=== PATIENT | male | born 1965 | race Hispanic/Latino ===

== ENCOUNTER 2017-07-04 12:14 | Inpatient (IN) | payer OTHER ==
[2017-07-04 12:22] VITALS: BMI 27.7
--- NOTE | 2017-07-04 13:31 | ED PDOC ---
Arrival/HPI - General Chief Complaint: Abnormal Skin Integrity Time Seen by Provider: 07/04/17 12:26 Historian: Patient - History of Present Illness Narrative History of Present Illness (Text): 07/04/17 12:35 Lan Salas is a 52 year old male who presents to the emergency department with a worsened wound to the right hip s/p falling two weeks ago. Patient states that he had hip surgery in December and had issues with wound healing. Patient had an appointment with Dr. Byrne on 06/29/17 but missed the appointment due to an issue with transportation. Patient fell 2 weeks ago and believes he worsened the wound on his right hip. Patient presents today with continued purulent discharge from right hip wound and minimal pain to his right hip. Patient denies any fevers, chills, or any other complaints at this time. 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 hip surgery unsure why as per patient - Anesthesia Hx Anesthesia: Yes Family/Social History - Physician Review Nursing Documentation Reviewed: Yes Family/Social History: No Known Family HX Smoking Status: Heavy Smoker > 10 Cigarettes Daily Hx Alcohol Use: No Hx Substance Use: No Allergies/Home Meds Allergies/Adverse Reactions: Allergies divalproex sodium [From Depakote] Adverse Reaction (Verified 08/30/15 20:01) coma pt says he thinks he had reaction to depakote in combination with another drug Home Medications: Home Meds Medication Instructions Recorded Confirmed Aspirin [[place] Aspirin] 81 mg PO DAILY 07/13/15 07/04/17 Review of Systems - Physician Review All systems were reviewed & negative as marked: Yes - Review of Systems Constitutional: absent: Fevers, Night Sweats Eyes: absent: Vision Changes ENT: absent: Hearing Changes Respiratory: absent: SOB, Cough Cardiovascular: absent: Chest Pain Gastrointestinal: absent: Abdominal Pain Genitourinary Male: absent: Dysuria Musculoskeletal: Other (Right hip pain) Skin: Other (pirulent discharge from right right hip wound) Neurological: absent: Headache, Dizziness Endocrine: absent: Diaphoresis Hemo/Lymphatic: absent: Adenopathy Psychiatric: absent: Anxiety, Depression Physical Exam Vital Signs Reviewed: Yes Vital Signs Temp Pulse Resp BP Pulse Ox 07/04/17 12:23 97.5 F L 60 18 115/69 96 Temperature: Afebrile Blood Pressure: Normal Pulse: Regular Respiratory Rate: Normal Appearance: Positive for: Well-Appearing, Non-Toxic, Comfortable Pain Distress: None Mental Status: Positive for: Alert and Oriented X 3 - Systems Exam Head: Present: Atraumatic, Normocephalic Mouth: Present: Moist Mucous Membranes Respiratory/Chest: Present: Clear to Auscultation, Good Air Exchange. No: Respiratory Distress, Accessory Muscle Use Cardiovascular: Present: Regular Rate and Rhythm, Normal S1, S2. No: Murmurs Abdomen: No: Tenderness, Distention, Peritoneal Signs, Rebound, Guarding Upper Extremity: Present: Normal Inspection. No: Cyanosis, Edema Lower Extremity: Present: NORMAL PULSES, Normal ROM, Tenderness (minimal tenderness), Swelling (minimal bilateral lower leg swelling and edema present), Erythema, Neurovascularly Intact, Other (Right lateral aspect, proximal of femur : Quarter-sized wound with surrounding erythema and purulent discharge; nontender). No: CALF TENDERNESS, Deformity Neurological: Present: GCS=15, Speech Normal Skin: Present: Warm, Dry, Normal Color Psychiatric: Present: Alert, Oriented x 3 Medical Decision Making ED Course and Treatment: 07/04/17 19:01 52-year-old male presents with an infected wound to the right hip CBC within normal limits CMP within normal limits Blood cultures pending Wound cultures pending Patient had appointment with Dr. Byrne that he missed on 06/29/17. I consulted with student services vice president who saw patient at bedside Who discussed the case with Dr. Byrne. X-rays of the right hip no fracture Patient was started on vancomycin and Zosyn IV for infected wound. Case was discussed in depth with Dr. mendez accepts admission Impression: Infected wound of the right leg Admit to [facility] - Lab Interpretations Microbiology Results: Microbiology Results 07/04/17 13:55 Hip - Right Gram Stain - Final Lab Results: 07/04/17 13:55 07/04/17 13:55 Lab Results 07/04/17 13:55: WBC 9.1, RBC 4.02, Hgb 13.2 L, Hct 39.8 L, MCV 99.0, MCH 32.8, MCHC 33.2, RDW 14.3, Plt Count 310, MPV 9.4, Gran % 63.4, Lymph % (Auto) 25.2, [place] % (Auto) 6.7 H, Eos % (Auto) 4.4, Baso % (Auto) 0.3, Gran # 5.74, Lymph # ( Auto) 2.3, [place] # (Auto) 0.6, Eos # (Auto) 0.4, Baso # (Auto) 0.03 07/04/17 13:55: Sodium 143, Potassium 3.6, Chloride 105, Carbon Dioxide 27, Anion Gap 16, BUN 15, Creatinine 0.8, Est GFR ( Amer) > 60, Est GFR (Non- Af Amer) > 60, Random Glucose 85, Calcium 9.2, Total Bilirubin 0.3, AST 22, ALT 30, Alkaline Phosphatase 74, Total Protein 7.7, Albumin 4.1, Globulin 3.6, Albumin/Globulin Ratio 1.2 - RAD Interpretation Radiology Orders: 07/04/17 13:24 Hip Right [HIP MIN 2V W/ PELVIS RT] [RAD] Stat - Medication Orders Current Medication Orders: Acetaminophen (Tylenol 325mg Tab) 650 mg PO Q4 PRN PRN Reason: Fever >100.4 F Famotidine (Pepcid) 40 mg PO HS SUNITA Heparin Sodium (Porcine) (Heparin) 5,000 units SC Q8 SUNITA PRN Reason: Protocol Vancomycin HCl (Vancomycin 1gm) 1 gm in 250 mls @ 167 mls/hr IVPB DAILY SUNITA PRN Reason: Protocol Piperacillin Sod/Tazobactam Sod (Zosyn 3.375 In Ns 100ml) 100 mls @ 200 mls/hr IVPB Q6H SUNITA PRN Reason: Protocol Stop: 07/04/17 23:29 Last Admin: 07/04/17 18:37 Dose: Ketorolac Tromethamine (Toradol) 15 mg IVP Q6H PRN PRN Reason: Pain, moderate (4-7) Nicotine (Nicoderm Cq) 1 patch TD DAILY SUNITA Discontinued Medications Vancomycin HCl (Vancomycin 1gm) 1 gm in 250 mls @ 167 mls/hr IVPB STAT STA PRN Reason: Protocol Stop: 07/04/17 16:12 Last Admin: 07/04/17 16:20 Dose: 167 mls/hr eMAR Start Stop Document 07/04/17 16:20 SS (Rec: 07/04/17 16:20 SS [id number]) Intravenous Solution Start Date 07/04/17 Start Time 16:20 End Date 07/04/17 End time 17:50 Total Infusion Time 90 Piperacillin Sod/Tazobactam Sod (Zosyn 3.375 In Ns 100ml) 100 mls @ 200 mls/hr IVPB STAT STA PRN Reason: Protocol Stop: 07/04/17 15:12 Last Admin: 07/04/17 15:08 Dose: 200 mls/hr eMAR Start Stop Document 07/04/17 15:08 SS (Rec: 07/04/17 15:09 SS [id number]) Intravenous Solution Start Date 07/04/17 Start Time 15:08 End Date 07/04/17 End time 15:38 Total Infusion Time 30 Morphine Sulfate (Morphine) 2 mg IVP STAT STA Stop: 07/04/17 14:46 Last Admin: 07/04/17 15:09 Dose: 2 mg MAR Pain Assessment Document 07/04/17 15:09 SS (Rec: 07/04/17 15:09 SS [id number]) Pain Reassessment Is this a pain reassessment? No Presence of Pain Presence of Pain Yes Pain Scale Used Pain Scale Used Numeric IVP Administration Document 07/04/17 15:09 SS (Rec: 07/04/17 15:09 SS [id number]) Charges for Administration # of IVP Administrations 1 Nicotine (Nicoderm Cq) 1 patch TD STAT STA Stop: 07/04/17 14:45 Last Admin: 07/04/17 15:09 Dose: 1 patch MAR Transdermal Patch Site Document 07/04/17 15:09 SS (Rec: 07/04/17 15:09 SS [id number]) Transdermal Patch Site Transdermal Patch Site Right Outer Upper Arm - Scribe Statement The provider has reviewed the documentation as recorded by the Marthaibshwetha Lopez Provider Scribe Attestation: All medical record entries made by the Scribe were at my direction and personally dictated by me. I have reviewed the chart and agree that the record accurately reflects my personal performance of the history, physical exam, medical decision making, and the department course for this patient. I have also personally directed, reviewed, and agree with the discharge instructions and disposition. Disposition/Present on Arrival - Present on Arrival Any Indicators Present on Arrival: No History of DVT/PE: No History of Uncontrolled Diabetes: No Urinary Catheter: No History of Decub. Ulcer: No History Surgical Site Infection Following: Orthopedic Procedures - Disposition Have Diagnosis and Disposition been Completed?: Yes Diagnosis: Infected open wound Disposition: HOSPITALIZED Disposition Time: 14:15 Patient Plan: Admission Condition: FAIR
[2017-07-04 14:00] LABS: BASO # 0.03 K/mm3 (0.0-2.0); BASO % 0.3 % (0.0-3.0); EOS # 0.4 (0.0-0.7); EOS % 4.4 % (1.5-5.0); GRAN # 5.74 (1.4-6.5); GRAN % 63.4 % (50.0-68.0); HEMOGLOBIN 13.2 g/dL (14.0-18.0); LYMPH # 2.3 (1.2-3.4); LYMPH % 25.2 % (22.0-35.0); MEAN CORPUSCULAR HEMOGLOBIN 32.8 pg (25.0-35.0); MEAN CORPUSCULAR HGB CONC 33.2 g/dl (31.0-37.0); MEAN PLATELET VOLUME 9.4 fl (7.0-11.0); MONO # 0.6 (0.1-0.6); MONO % 6.7 % (1.0-6.0); RBC 4.02 10^6/uL (3.5-6.1); RED CELL DISTRIBUTION WIDTH 14.3 % (11.5-14.5); WHITE BLOOD COUNT 9.1 10^3/ul (4.5-11.0)
[2017-07-04 14:14] LABS: ALB/GLOB RATIO 1.2 (1.1-1.8); ALBUMIN 4.1 g/dL (3.0-4.8); ALT/SGPT 30 U/L (7-56); AST/SGOT 22 U/L (17-59); BLOOD UREA NITROGEN 15 mg/dL (7-21); CALCIUM 9.2 mg/dL (8.4-10.5); GFR AFRICAN-AMERICAN > 60; GFR NON-AFRICAN AMERICAN > 60
[2017-07-04] MEDS ORDERED: Piperacillin/Tazobact 3.375 gm 100 ML IVPB STA (14:43)
[2017-07-04] MEDS ORDERED: Vancomycin 1gm in NS 250ml 1 GM/250 ML BAG IVPB STA (14:43)
[2017-07-04] MEDS ORDERED: Morphine 4 mg/ml ISec IVP STA (14:45)
--- NOTE | 2017-07-04 14:52 | CP.PCM.CON ---
History of Present Illness - History of Present Illness History of Present Illness: Surgery Consult note. Dr. Byrne 52yo M with PMHx of Multiple Sclerosis, HLD here for evaluation of right hip non -healing wound. Patient reports that he had an appointment with Dr. Byrne in his wound care center but missed his appointment this morning and came into the ED instead. Patient reports that in December 2016, he was walking with his and felt something sharp hit him in the right hip, does not know what it was, states that it may have been a metal hook of some sort. He was bleeding and was taken to [facility] where he reports that they did some debridement of the wound and discharged him. He has been following up with an unknown PMD since and was referred to Dr. Byrne due to non-healing wound. He states that he has been getting around with the use of a wheelchair since this injury. He reports some purulent drainage from the wound. He also reports that two weeks ago, he had a fall and he may have had trauma to the right hip again at that time. He denies any fevers or chills. Able to move both lower extremities without any complaints. Does report pain when he bears weight on his right leg. Does report urinary incontinence. Denies N/V/D. No Abd pain. No CP/SOB. PMHx: Multiple Sclerosis, HLD PSHx: Right hip debridement Dec 2016, Right knee debridement, Umbilical hernia repair Family Hx: non-contributory Social Hx: 1ppd smoker for 35 years; Denies ETOH; Denies illicit drugs Allergy: Depakote Review of Systems - Review of Systems All systems: reviewed and no additional remarkable complaints except - Constitutional Constitutional: absent: Chills, Fever - Cardiovascular Cardiovascular: absent: Chest Pain, Dyspnea - Respiratory Respiratory: absent: Dyspnea - Gastrointestinal Gastrointestinal: absent: Abdominal Pain, Diarrhea, Nausea, Vomiting - Genitourinary Genitourinary: Urinary Incontinence - Musculoskeletal Additional comments: Right hip pain, non-healing wound - Integumentary Additional comments: right hip non-healing wound Past Patient History - Infectious Disease Hx of Infectious Diseases: None - Past Medical History & Family History Past Medical History?: Yes Past Family History: Reviewed and not pertinent - Past Social History Smoking Status: Heavy Smoker > 10 Cigarettes Daily Alcohol: None Drugs: Denies Home Situation {Lives}: With Family - NEUROLOGICAL Hx Multiple Sclerosis: Yes - MUSCULOSKELETAL/RHEUMATOLOGICAL Hx Musculoskeletal Disorders: Yes Hx Back Pain: Yes - PSYCHIATRIC Hx Substance Use: No - SURGICAL HISTORY Other/Comment: prostate procedure, 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 hip surgery unsure why as per patient - ANESTHESIA Hx Anesthesia: Yes Meds Allergies/Adverse Reactions: Allergies Allergy/AdvReac Type Severity Reaction Status Date / Time divalproex sodium AdvReac coma Verified 08/30/15 20:01 [From [facility]] Physical Exam - Constitutional Appears: Unkempt Additional comments: smells of urine, disheveled, messy clothes - Head Exam Head Exam: ATRAUMATIC, NORMAL INSPECTION - Eye Exam Eye Exam: EOMI, Normal appearance - ENT Exam ENT Exam: Mucous Membranes Moist - Respiratory Exam Respiratory Exam: NORMAL BREATHING PATTERN. absent: Accessory Muscle Use, Respiratory Distress - Cardiovascular Exam Cardiovascular Exam: RRR. absent: JVD - GI/Abdominal Exam GI & Abdominal Exam: Soft. absent: Distended, Firm, Guarding, Rebound, Rigid, Tenderness - Extremities Exam Additional comments: right hip full active range of motion. No bony tenderness Skin overlying the right hip with purulent clear, ordorous discharge. Non- healing wound noted approximately 3cm x 4cm. surrounding erythema. No induration noted. No fluctuance - Back Exam Additional comments: Stage 2 small, 1cm x 0.5cm sacral ulcer with clean ulcer base. Wet urine and odor noted over perineal area. - Neurological Exam Neurological exam: Alert, Oriented x3 Results - Vital Signs Recent Vital Signs: Last Vital Signs Temp 97.5 F L 07/04/17 12:23 Pulse 60 07/04/17 12:23 Resp 18 07/04/17 12:23 BP 115/69 07/04/17 12:23 Pulse Ox 96 07/04/17 12:23 - Labs Result Diagrams: 07/04/17 13:55 07/04/17 13:55 Labs: Laboratory Results - last 24 hr 07/04/17 07/04/17 13:55 13:55 WBC 9.1 RBC 4.02 Hgb 13.2 L Hct 39.8 L MCV 99.0 MCH 32.8 MCHC 33.2 RDW 14.3 Plt Count 310 MPV 9.4 Gran % 63.4 Lymph % (Auto) 25.2 [place] % (Auto) 6.7 H Eos % (Auto) 4.4 Baso % (Auto) 0.3 Gran # 5.74 Lymph # (Auto) 2.3 [place] # (Auto) 0.6 Eos # (Auto) 0.4 Baso # (Auto) 0.03 Sodium 143 Potassium 3.6 Chloride 105 Carbon Dioxide 27 Anion Gap 16 BUN 15 Creatinine 0.8 Est GFR ( Amer) > 60 Est GFR (Non-Af Amer) > 60 Random Glucose 85 Calcium 9.2 Total Bilirubin 0.3 AST 22 ALT 30 Alkaline Phosphatase 74 Total Protein 7.7 Albumin 4.1 Globulin 3.6 Albumin/Globulin Ratio 1.2 Assessment & Plan - Assessment and Plan (Free Text) Assessment: 52yo M with Right hip non-healing wound Plan: We have offered the patient admission to the hospital and the plan as listed below. Patient wound like to reconsider accepting admission and discuss his options with the ER staff. He verbalized his concern for his 's well-being and medication administrations during the time that he would need to be hospitalized. I have discussed this with the ER staff and they state that they will notify me if the patient accepts our care as outlined below. - Admit to hospital - f/u Bloodwork - Obtain Right hip CT with IV contrast to evaluate non-healing wound - IV Abx - Optifoam to small sacral skin wound. Keep area clean and dry - Consult ID, Dr. Monk - F/u wound cultures sent - We will make further recommendations as we follow patient's clinical course Further recs as per Dr. Chavez Tong PGY1 surgery pager: [phone]
--- NOTE | 2017-07-04 15:23 | RAD ---
PROCEDURE: Right Hip and pelvis Radiographs. HISTORY: hip pain COMPARISON: None. FINDINGS: BONES: Normal. No fracture. JOINTS: Normal. SOFT TISSUES: Normal. OTHER FINDINGS: None. IMPRESSION: Negative study
[2017-07-04] MEDS ORDERED: Piperacillin/Tazobact 3.375 gm 100 ML IVPB SCH (17:00)
--- NOTE | 2017-07-04 17:04 | CP.PCM.HP ---
<Estefania El - Last Filed: 07/04/17 22:04> History of Present Illness - History of Present Illness History of Present Illness: CC: My wound is open Patient is a 52 y/o M with PMHx of MS presenting with surgical wound dehiscence. Patient states back in December 2016, he had right hip surgery. States leading up to the surgery he was experiencing right hip pain, had imaging done and was told he had fishing hook in his joint. Patient had the surgery at [facility] states he doesn 't know the detail of the procedure. Since the procedure patient follows up with his PMD Dr Gaona, but states when Dr Gaona evaluated the wound few days ago , she realized the wound was not healing well, the wound bursted open. Patient' s PMD sent patient to see Dr Byrne in the office, however patient was late to his appointment thus decided to come to the ED. Patient states post procedure he was told to limit weight bearing on the limb, however, he was evicted from where he used to live, now lives in a [address] [facility] apartment. Patient admits to purulent discharge from the wound, denies fever, chills, nausea, vomiting or diarrhea. No abdominal pain, no dysurea. No cp or sob. PMhx: as stated above PSHx: multiple orthopedic surgery and orbital surgery as the result of being in a war. FMHx: non contributory Social: smokes a pack a day of tobacco, denies alcohol or illicit drug use, lives with , . Was ambulatory prior to this procedure, and is still ambulatory with intermittent wheelchair. Allergy: divalproex Home meds: gabapentin, don't remember the rest Pharmacy: [facility] in [place] Present on Admission - Present on Admission Any Indicators Present on Admission: No History of DVT/PE: No History of Uncontrolled Diabetes: No Urinary Catheter: No Decubitus Ulcer Present: No History Surgical Site Infection Following: Orthopedic Procedures Review of Systems - Review of Systems All systems: reviewed and no additional remarkable complaints except Review of Systems: As per HPI. 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 hip surgery unsure why as per patient - ANESTHESIA Hx Anesthesia: Yes Meds Allergies/Adverse Reactions: Allergies Allergy/AdvReac Type Severity Reaction Status Date / Time divalproex sodium AdvReac coma Verified 08/30/15 20:01 [facility] Physical Exam - Constitutional Appears: No Acute Distress, Older Than Stated Age, Cachectic, Chronically Ill - Head Exam Head Exam: ATRAUMATIC, NORMAL INSPECTION, NORMOCEPHALIC - Eye Exam Eye Exam: EOMI, Normal appearance, PERRL Pupil Exam: NORMAL ACCOMODATION - ENT Exam ENT Exam: Mucous Membranes Moist - Neck Exam Neck exam: Positive for: Full Rom, Normal Inspection - Respiratory Exam Respiratory Exam: Clear to Auscultation Bilateral, NORMAL BREATHING PATTERN. absent: Decreased Breath Sounds, Rales, Rhonchi, Wheezes, Respiratory Distress, Stridor - Cardiovascular Exam Cardiovascular Exam: REGULAR RHYTHM, RRR, +S1, +S2. absent: Bradycardia, Tachycardia, Diastolic murmur, Gallop, Irregular Rhythm, JVD, Rubs, Systolic Murmur - GI/Abdominal Exam GI & Abdominal Exam: Normal Bowel Sounds, Soft. absent: Diminished Bowel Sounds , Distended, Firm, Guarding, Mass, Rebound, Rigid, Tenderness - Extremities Exam Extremities exam: Positive for: tenderness (right thigh ). Negative for: pedal edema Additional comments: Right lateral thigh with dime sized open wound draining serosanguinous drainage , non foul smelling, no abscess noted. surrounding by discreet erythema. cool to touch. - Back Exam Back exam: NORMAL INSPECTION - Neurological Exam Neurological exam: Alert, Oriented x3, Reflexes Normal - Psychiatric Exam Psychiatric exam: Flat Affect - Skin Skin Exam: Abrasion, Erythema, Normal Color Additional comments: Please see above. Results - Vital Signs Recent Vital Signs: Last Vital Signs Temp 97.5 F L 07/04/17 12:23 Pulse 60 07/04/17 12:23 Resp 18 07/04/17 12:23 BP 115/69 07/04/17 12:23 Pulse Ox 96 07/04/17 12:23 - Labs Result Diagrams: 07/04/17 13:55 07/04/17 13:55 Labs: Laboratory Results - last 24 hr 07/04/17 07/04/17 13:55 13:55 WBC 9.1 RBC 4.02 Hgb 13.2 L Hct 39.8 L MCV 99.0 MCH 32.8 MCHC 33.2 RDW 14.3 Plt Count 310 MPV 9.4 Gran % 63.4 Lymph % (Auto) 25.2 [place] % (Auto) 6.7 H Eos % (Auto) 4.4 Baso % (Auto) 0.3 Gran # 5.74 Lymph # (Auto) 2.3 [place] # (Auto) 0.6 Eos # (Auto) 0.4 Baso # (Auto) 0.03 Sodium 143 Potassium 3.6 Chloride 105 Carbon Dioxide 27 Anion Gap 16 BUN 15 Creatinine 0.8 Est GFR ( Amer) > 60 Est GFR (Non-Af Amer) > 60 Random Glucose 85 Calcium 9.2 Total Bilirubin 0.3 AST 22 ALT 30 Alkaline Phosphatase 74 Total Protein 7.7 Albumin 4.1 Globulin 3.6 Albumin/Globulin Ratio 1.2 Assessment & Plan - Assessment and Plan (Free Text) Assessment: Patient is a 52 y/o M with PMHx of MS presenting with surgical wound dehiscence and is being admitted with right lateral thigh cellulites and infected surgical wound. Plan: 1) Cellulites and infected right hip wound - Post surgical complication, right hip surgery done in another hospital back in Dec 2016. - Currently no leukocytosis, afebrile, and tachycardia. - Will obtain wound and blood cultures. - Will add ESR/CRP - ID and surgery consulted - Right hip x-ray with no acute finding, CT w/ iv contrast ordered - s/p zosyn and vanco, will resume - HIV ordered - Toradol prn for pain, Tylenol prn for fever. 2) Tobacco abuse- nicotine patch giving, tobacco cessation counseling provided. 3) Mild Anemia- hgb of 13.2, no active bleeding, will monitor for now. 4) MS- no active symptoms at this time, call pharmacy in the ED. 5) DVT and gi prophylaxis: Pepcid and heparin sc. Patient seen, examined and case discussed with Dr Argueta. - Date & Time Date: 07/04/17 Time: 19:20 <Giovanna Argueta B - Last Filed: 07/06/17 13:09> Results - Vital Signs Recent Vital Signs: Last Vital Signs Temp 99.2 F 07/05/17 06:00 Pulse 113 H 07/05/17 06:00 Resp 20 07/05/17 06:00 BP 122/81 07/05/17 06:00 Pulse Ox 97 07/05/17 06:00 - Labs Result Diagrams: 07/05/17 06:00 07/05/17 06:00 Labs: Laboratory Results - last 24 hr 07/05/17 06:00 HIV 1&2 Ag/Ab, 4th Gen Nonreactive Attending/Attestation - Attestation I have personally seen and examined this patient.: Yes I have fully participated in the care of the patient.: Yes I have reviewed all pertinent clinical information: Yes Notes (Text): I have seen and examined the patient at bedside. Agree with the above note with the following additions/ exceptions: Briefly this is 52 y/o M with PMHx of MS presenting with surgical wound dehiscence and is being admitted with right lateral thigh cellulites and infected surgical wound. Will do cultures and start IV antibiotics. Will consult surgery. Tobacco cessation counselling provided.
[2017-07-04 23:08] VITALS: O2SAT 97
[2017-07-04 23:44] VITALS: RESP 20
[2017-07-05] MEDS ORDERED: Oxycodone/Acetaminophen 5/325 mg Tab PO STA (05:22)
--- NOTE | 2017-07-05 05:46 | CP.PCM.PN ---
Subjective - Date & Time of Evaluation Date of Evaluation: 07/05/17 Time of Evaluation: 04:20 - Subjective Subjective: Patient is admitted for R hip wound dehiscence following surgery on the R hip in Dec 2016. He has history of Multiple Sclerosis,has chronic lower back pain and pain in his R lower extremity . Pt [place] [facility] [place]a drug from a specialty pharmacy) for Multiple Sclerosis later on today. VS:BP 122/81 RR20 HR113 T 99.2 O2 sat 97% on R Air PMH:Multiple Sclerosis,Orthopedic procedures. Objective - Vital Signs/Intake and Output Vital Signs (last 24 hours): Temp Pulse Resp BP Pulse Ox 98.7 F 117 H 20 139/80 97 07/04/17 23:40 07/05/17 01:24 07/04/17 23:40 07/04/17 23:40 07/04/17 23:40 Intake and Output: 07/04/17 07/05/17 18:59 06:59 Intake Total 300 Balance 300 - Medications Medications: Current Medications Acetaminophen (Tylenol 325mg Tab) 650 mg PO Q4 PRN PRN Reason: Fever >100.4 F Famotidine (Pepcid) 40 mg PO HS SUNITA Last Admin: 07/04/17 22:30 Dose: 40 mg Heparin Sodium (Porcine) (Heparin) 5,000 units SC Q8 SUNITA PRN Reason: Protocol Ketorolac Tromethamine (Toradol) 15 mg IVP Q6H PRN PRN Reason: Pain, moderate (4-7) Nicotine (Nicoderm Cq) 1 patch TD DAILY SUNITA - Constitutional Appears: No Acute Distress, Chronically Ill - Head Exam Head Exam: ATRAUMATIC, NORMOCEPHALIC - Eye Exam Eye Exam: EOMI, PERRL - ENT Exam ENT Exam: Mucous Membranes Moist - Neck Exam Neck Exam: Normal Inspection - Respiratory Exam Respiratory Exam: Clear to Ausculation Bilateral, NORMAL BREATHING PATTERN - Cardiovascular Exam Cardiovascular Exam: Tachycardia, REGULAR RHYTHM - GI/Abdominal Exam GI & Abdominal Exam: Soft, Normal Bowel Sounds. absent: Tenderness - Extremities Exam Extremities Exam: absent: Calf Tenderness, Pedal Edema - Neurological Exam Neurological Exam: Awake, Oriented x3 - Psychiatric Exam Psychiatric exam: Agitated (at times) - Skin Skin Exam: Dry, Warm Additional comments: There are 2 ulcers,one on each buttock and a non-healed wound on the R hip region.sero purulent dischargenoted from all 3 sites. Assessment and Plan - Assessment and Plan (Free Text) Assessment: Tachycardia is probably secondary to pain. Plan: EKG done stat shows Sinus tachycardia,rate of 104/min,poor progression of the R wave in V2 to V4 leads. Percocet 5/325 1tablet po ordered stat.
[2017-07-05 06:19] LABS: BASO # 0.02 K/mm3 (0.0-2.0); BASO % 0.1 % (0.0-3.0); EOS # 0.3 (0.0-0.7); EOS % 2.1 % (1.5-5.0); GRAN # 10.86 (1.4-6.5); GRAN % 81.4 % (50.0-68.0); HEMOGLOBIN 12.1 g/dL (14.0-18.0); LYMPH # 1.4 (1.2-3.4); LYMPH % 10.4 % (22.0-35.0); MEAN CELL VOLUME 98.2 fl (80.0-105.0); MEAN CORPUSCULAR HEMOGLOBIN 31.7 pg (25.0-35.0); MEAN CORPUSCULAR HGB CONC 32.3 g/dl (31.0-37.0); MEAN PLATELET VOLUME 9.3 fl (7.0-11.0); MONO # 0.8 (0.1-0.6); RBC 3.82 10^6/uL (3.5-6.1); RED CELL DISTRIBUTION WIDTH 14.3 % (11.5-14.5); WHITE BLOOD COUNT 13.4 10^3/ul (4.5-11.0)
[2017-07-05 06:57] LABS: BLOOD UREA NITROGEN 11 mg/dL (7-21); CALCIUM 8.7 mg/dL (8.4-10.5); GFR AFRICAN-AMERICAN > 60; GFR NON-AFRICAN AMERICAN > 60
--- NOTE | 2017-07-05 08:32 | CON ---
DATE: 07/04/2017 LOCATION: Patient is seen in room 374, bed 2. CHIEF COMPLAINT: Chronic right wound infection times months. HISTORY OF PRESENT ILLNESS: This is a 52-year-old male with a history of multiple sclerosis, hyperlipidemia, a fall in December, who states that he had had an infection to his wound, had surgery done but there is no prosthetic hip, no prosthetic devices, and he states that his wound opened up and had drainage, chronic discharge from his right hip wound. He denies any fevers, any chills. No nausea, no vomiting, no chest pain. PAST MEDICAL HISTORY: Significant for multiple sclerosis, he was on a multiple sclerosis medication which he has not been taking for months, and patient also with hyperlipidemia and chronic back pain. PAST SURGICAL HISTORY: Significant for right hip surgery, orbital surgery and hernia surgery. ALLERGIES: . MEDICATIONS AT HOME: He takes aspirin intermittently. PHYSICAL EXAMINATION: GENERAL: On exam, he is in bed, who smells of cigarettes, he is a long-time smoker, poorly kept hygiene, with difficulty concentrating on the subject and discussion. VITAL SIGNS: Temperature of 97, pulse of 60, respiratory rate of 18, blood pressure is 115/60. HEENT: Unremarkable. NECK: Supple. LUNGS: Have decreased breath sounds. HEART: Sounds normal S1 and S2. ABDOMEN: Soft, nontender. No rebound or guarding. EXTREMITIES: Examination of right hip, there is chronic discharge with mild erythema, no acute, not warm to touch. LABORATORY DATA: Reveals a white count of 9, hemoglobin of 13, platelets of 310. Chemistries reveals a BUN of 15, creatinine of 0.8. Microbiology is pending. The patient had a hip x-ray which is negative. Emergency room chart is reviewed. ASSESSMENT AND PLAN: This is a 52-year-old male with multiple sclerosis, hyperlipidemia, chronic back pain, presenting with a chronic right hip wound, must rule out underlying osteomyelitis. We will hold off on any antibiotics since the patient is not systemically ill. We will check on a sedimentation rate and C-reactive protein, and human immunodeficiency virus test. Unfortunately, the superficial wound culture is not an accurate measurement, we will need a deep tissue and/or bone culture, and I would send a deep bone culture and deep wound culture for Gram stain, and routine cultures in addition to atypical such as acid-fast bacillus smears and fungal smears, and cultures for acid-fast bacillus and fungal cultures. The patient has been out of [place], he was in the [employer] and served in [place] and was also in [place], and must rule out a foreign body as the cause of the chronic wound. We will check on the CAT scan of the hip. No antibiotics at this point. We will discontinue the vancomycin and Zosyn, which have been ordered, pending initial culture results and deep tissue cultures and imaging. We will follow with you. Ahmet Monk MD
[2017-07-05] MEDS ORDERED: Iohexol 350 MG/100 ML VIAL ONE (08:36)
--- NOTE | 2017-07-05 08:57 | CP.PCM.PN ---
<Deejay Waters - Last Filed: 07/05/17 13:12> Subjective - Date & Time of Evaluation Date of Evaluation: 07/05/17 Time of Evaluation: 09:00 - Subjective Subjective: Patient signed out AMA. Risks/Benefits of leaving were discussed with the patient, he still opted to Leave AMA. Patient verbalized understanding and agreement. Objective - Vital Signs/Intake and Output Vital Signs (last 24 hours): Temp Pulse Resp BP Pulse Ox 98.7 F 133 H 20 139/80 97 07/04/17 23:40 07/05/17 06:00 07/04/17 23:40 07/04/17 23:40 07/04/17 23:40 Intake and Output: 07/05/17 07/05/17 06:59 18:59 Intake Total 1020 Balance 1020 - Medications Medications: Current Medications Acetaminophen (Tylenol 325mg Tab) 650 mg PO Q4 PRN PRN Reason: Fever >100.4 F Famotidine (Pepcid) 40 mg PO HS [facility] Last Admin: 07/04/17 22:30 Dose: 40 mg Heparin Sodium (Porcine) (Heparin) 5,000 units SC Q8 SUNITA PRN Reason: Protocol Last Admin: 07/05/17 05:40 Dose: 5,000 units Ketorolac Tromethamine (Toradol) 15 mg IVP Q6H PRN PRN Reason: Pain, moderate (4-7) Nicotine (Nicoderm Cq) 1 patch TD DAILY SUNITA - Labs Labs: 07/05/17 06:00 07/05/17 06:00 <Ezio Washburn - Last Filed: 07/05/17 13:56> Objective - Vital Signs/Intake and Output Vital Signs (last 24 hours): Temp Pulse Resp BP Pulse Ox 99.2 F 113 H 20 122/81 97 07/05/17 06:00 07/05/17 06:00 07/05/17 06:00 07/05/17 06:00 07/05/17 06:00 Intake and Output: 07/05/17 07/05/17 06:59 18:59 Intake Total 1020 Balance 1020 - Labs Labs: 07/05/17 06:00 07/05/17 06:00 Attending/Attestation - Attestation I have personally seen and examined this patient.: No I have fully participated in the care of the patient.: No I have reviewed all pertinent clinical information, including history, physical exam and plan: Yes Notes (Text): 07/05/17 13:55 Patient signed out AMA and not seen or examined by me.
--- NOTE | 2017-07-05 09:10 | CP.PCM.PCO ---
Physician Communication Note - Physician Communication Note Physician Communication Note: Patient seen at bedside Addendum Addendum: 07/05/17 09:07 Patient was out of bed and dressed, stating he was signing out AMA to go for an infusion for MS at an outpatient facility. Patient expressed understanding that he should call and set up an appointment with the wound care center for further evaluation and treatment of the wound as an outpatient.
[2017-07-05 09:40] VITALS: BP 122/81; PULSE 113; TEMP 99.2
[2017-07-05] MEDS ORDERED: Vancomycin 1gm in NS 250ml 1 GM/250 ML BAG IVPB SCH (10:00)
--- NOTE | 2017-07-05 12:05 | CARD ---
APPROVED REPORT EKG Measurement Heart [id number] CA 122P50 [id number] <Conclusion> Sinus tachycardia Minimal voltage criteria for LVH, may be normal variant Poor R Progression V1-V2.
--- NOTE | 2017-07-05 12:09 | CARD ---
APPROVED REPORT EKG Measurement Heart [id number] <Conclusion> Sinus tachycardia Minimal voltage criteria for LVH, may be normal variant Poor R Progression V1-V2.
--- NOTE | 2017-07-05 16:03 | PN ---
DATE: 07/05/2017 SUBJECTIVE: The patient is seen earlier this morning in room 374, bed 2. No fevers and no chills. PHYSICAL EXAMINATION: VITAL SIGNS: Temperature 99, blood pressure is , respiratory rate of 20, heart rate of 113. HEENT: Examination is unremarkable. NECK: Supple. LUNGS: Have decreased breath sounds. HEART: Normal S1 and S2. ABDOMEN: Soft, nontender. DATA: Laboratory examination reveals a white count of . BUN of 11, creatinine of 1. Hip culture is pending. ASSESSMENT AND PLAN: This is a 52-year-old male who was seen earlier this morning and states that he does not want to be in the hospital, has not had a device. He has a history of multiple sclerosis, chronic back pain, presenting also with hyperlipidemia, chronic right hip wound. Should have deep tissue biopsy with acid-fast bacillus fungus smears and cultures Gram-stain culture and pathology. The patient is a longtime smoker who most likely was unable to stay in the hospital. We will follow with you. Ahmet Monk MD
== END 2017-07-05 09:51 | disposition left against medical advice (07) | DRG 452 ==
LOC: ED 12:14 → ERH 16:52 → 3RSO 18:47
PROVIDERS: ADMIT Hospitalist; ATTEND Hospitalist
DX: T81.31XA Disruption of external operation (surgical) wound, not elsewhere classified, initial encounter (principal); G35 Multiple sclerosis; L03.115 Cellulitis of right lower limb; R32 Unspecified urinary incontinence; F17.210 Nicotine dependence, cigarettes, uncomplicated; E78.5 Hyperlipidemia, unspecified; M54.9 Dorsalgia, unspecified; D64.9 Anemia, unspecified; Y83.8 Other surgical procedures as the cause of abnormal reaction of the patient, or of later complication, without mention of misadventure at the time of the procedure; Z79.82 Long term (current) use of aspirin